=== PATIENT | female | born 1995 | race Caucasian/White ===

== ENCOUNTER 2020-04-28 05:15 | Emergency (ER) | payer SELFPAY ==
[~2020-04-28] VITALS: Ht 162.6 cm; Wt 59.0 kg
--- NOTE | 2020-04-28 05:15 | NUR ---
PT BIB [facility] PRE-BOOK. TAKEN TO CHAIR
--- NOTE | 2020-04-28 05:25 | NUR ---
Dr. Duncan examining patient.
[2020-04-28 05:27] VITALS: BP 107/70
--- NOTE | 2020-04-28 05:32 | NUR ---
PT BIB [facility] FOR PREBOOK
[2020-04-28 06:07] VITALS: BP 107/70
--- NOTE | 2020-04-28 06:07 | NUR ---
PATIENT BIB [facility] [place] [employer]. PATIENT EXAMINED BY DR. VARGAS. PATIENT MEDICALLY CLEARED AND RELEASED IN CUSTODY IN STABLE CONDITION. ORIGINAL PRE-BOOK FORM GIVEN TO OFFICER JEAN #[id number].
== END 2020-04-28 06:07 | disposition home or self-care (01) ==
LOC: MED 05:15
DX: F10.129 Alcohol abuse with intoxication, unspecified (principal); Z02.89 Encounter for other administrative examinations; V47.5XXA Car driver injured in collision with fixed or stationary object in traffic accident, initial encounter; Y93.89 Activity, other specified; Y92.411 Interstate highway as the place of occurrence of the external cause; Y99.8 Other external cause status
CPT/HCPCS: 99283